=== PATIENT | female | born 2000 | race Two or more races ===

== ENCOUNTER 2024-09-03 07:16 | Emergency (ER) | payer OTHER ==
[~2024-09-03] VITALS: Ht 167.6 cm; Wt 54.4 kg
[2024-09-03] MEDS ORDERED: ACETAMINOPHEN 500 MG GEL..CAP PO ONE ×2 (08:35→08:45)
[2024-09-03] MEDS ORDERED: ONDANSETRON 4 MG TAB.RAPDIS PO ONE ×2 (08:35→08:45)
[2024-09-03 09:15] LABS: HEMATOCRIT 39.4 % (36.0-45.00); HEMOGLOBIN 12.9 g/dL (12.0-15.00); MEAN CELL VOLUME 85.4 fL (80.00-100.00); MEAN CORPUSCULAR HEMOGLOBIN 27.9 pg (27.00-32.0); MEAN CORPUSCULAR HGB CONC 32.7 g/dl (32.0-36.0); PLATELET COUNT 138 K/uL (150-450); RED BLOOD COUNT 4.61 M/uL (4.00-6.00); RED CELL DISTRIBUTION WIDTH 13.8 % (11.5-14.5)
[2024-09-03] MEDS ORDERED: LEVALBUTEROL HCL 0.63 MG/3 ML SOLUTION IH ONE (09:15)
[2024-09-03 09:26] LABS: CALCIUM 9.2 mg/dL (8.5-10.1); CREATININE SERUM 0.69 mg/dL (0.55-1.02); GFR 107.4; POTASSIUM 3.41 mEq/L (3.5-5.1)
[2024-09-03 09:32] LABS: COVID-19 AG NEGATIVE (NEGATIVE)
[2024-09-03 09:34] LABS: INFLUENZA A AG POSITIVE (NEGATIVE)
[2024-09-03 09:37] LABS: URINE APPEARANCE Clear; URINE BILIRRUBIN Negative (NEGATIVE); URINE BLOOD Negative; URINE COLOR Dark Yellow; URINE GLUCOSE Negative (NEGATIVE); URINE LEUKOCYTE Trace; URINE NITRATE Negative
[2024-09-03 09:42] LABS: URINE BACTERIA 6145.5 uL (0.0-1933); URINE EPITHELIAL CELLS 50.4 uL (0.0-38.8); URINE RBC 6.9 uL (0.0-20.8); URINE WBC 38.7 uL (0.0-23.2)
[2024-09-03] MEDS ORDERED: OSELTAMIVIR PHOSPHATE 75 MG CAPSULE PO ONE ×2 (09:45)
[2024-09-03] MEDS ORDERED: GUAIFENESIN/DEXTROMETHORPHAN 100MG/10ML BLIST.PACK PO ONE (10:29)
[2024-09-03] MEDS ORDERED: GUAIFENESIN 200 MG/10 ML BLIST.PACK PO ONE (10:30)
[2024-09-03 10:48] LABS: URINE CAST 0.73 uL (0.0-1.40); URINE KETONE 80 (NEGATIVE); URINE PROTEIN 100 (NEGATIVE)
[2024-09-03 10:50] LABS: URINE MUCUS HEAVY
== END 2024-09-03 10:45 | disposition home or self-care (01) ==
LOC: ER 07:17
PROVIDERS: Emergency Medicine
DX: J10.1 Influenza due to other identified influenza virus with other respiratory manifestations (principal); J40 Bronchitis, not specified as acute or chronic; R11.10 Vomiting, unspecified; Z20.822 Contact with and (suspected) exposure to COVID-19

== ENCOUNTER 2024-11-20 11:07 | Emergency (ER) | payer OTHER ==
[~2024-11-20] VITALS: Ht 167.6 cm; Wt 54.4 kg
[2024-11-20 11:41] VITALS: BP 93/58; O2SAT 98
[2024-11-20] MEDS ORDERED: KETOROLAC TROMETHAMINE 60 MG VIAL IM ONE (12:15)
[2024-11-20] MEDS ORDERED: CEFTRIAXONE SODIUM 1,000 MG VIAL IM ONE (12:15)
[2024-11-20] MEDS ORDERED: PEPCID AC20 MG PO (12:31)
[2024-11-20] MEDS ORDERED: NORFLEX100MG PO (12:31)
[2024-11-20] MEDS ORDERED: CEFUROXIME500 MG PO (12:31)
== END 2024-11-20 14:54 | disposition home or self-care (01) ==
LOC: ER 11:07
DX: N75.1 Abscess of Bartholin's gland (principal); Z87.09 Personal history of other diseases of the respiratory system